=== PATIENT | male | born 2005 | race African-American/Black ===

== ENCOUNTER 2023-01-23 21:41 | Emergency (ER) | payer MEDICAID ==
[~2023-01-23] VITALS: Ht 193 cm; Wt 96.6 kg
[2023-01-23 21:47] VITALS: BP_SYST 123; PULSE 81; RESP 18; TEMP 97.2; O2SAT 99
[2023-01-23] MEDS ORDERED: ACYC400T19 PO (22:32)
[2023-01-23 22:43] VITALS: BP_SYST 134; PULSE 64; RESP 17; O2SAT 98
== END 2023-01-23 22:43 | disposition home or self-care (01) ==
LOC: SED 21:41
DX: B37.0 Candidal stomatitis (principal); K13.79 Other lesions of oral mucosa; Z79.899 Other long term (current) drug therapy
CPT/HCPCS: 99282

== ENCOUNTER 2023-06-10 17:17 | Emergency (ER) | payer MEDICAID ==
[~2023-06-10] VITALS: Ht 193 cm; Wt 97.5 kg
[~2023-06-10 17:17] MED LIST: ACYC400T19 PO
[2023-06-10 17:51] VITALS: BP_SYST 121; PULSE 58; RESP 18; TEMP 98.6; O2SAT 99
[2023-06-10] MEDS ORDERED: FAMOTIDINE 20 MG TABLET PO ONE (18:00)
[2023-06-10] MEDS ORDERED: MAG HYDROX/AL HYDROX/SIMETH 30 ML, LIDOCAINE VISCOUS 2% 15ML (PO) 15 ML, DICYCLOMINE HC... PO ONE ×3 (18:00)
[2023-06-10 19:10] LABS: BILIRUBIN,URINE NEGATIVE (NEGATIVE); BLOOD, URINE NEGATIVE (NEGATIVE); CLARITY/URINE CLEAR (CLEAR); COLOR,URINE YELLOW (YELLOW); GLUCOSE,URINE NEGATIVE (NEGATIVE); KETONES,URINE NEGATIVE (NEGATIVE); LEUKOCYTE ESTERASE ,URINE NEGATIVE (NEGATIVE); NITRITE, URINE NEGATIVE (NEGATIVE); PH,URINE 6.5 (5.0-8.0); PROTEIN URINE NEGATIVE (NEGATIVE); UROBILINOGEN,URINE 0.2 (0.2-1.0)
[2023-06-10 19:14] LABS: BASOPHILS # (AUTO) 0.1 K/uL (0.0-0.2); BASOPHILS % (AUTO) 0.9 % (0.0-2.0); EOSINOPHILS # (AUTO) 0.1 K/uL (0.0-0.4); EOSINOPHILS % (AUTO) 1.6 % (0.0-4.0); HEMATOCRIT 38.1 % (36-54); HEMOGLOBIN 12.9 g/dL (14.0-18.0); LYMPHOCYTES # (AUTO) 1.5 K/uL (1.0-5.5); LYMPHOCYTES % (AUTO) 25.2 % (20.5-51.5); MEAN CORPUSCULAR HEMOGLOBIN 28 pg (27-31); MEAN CORPUSCULAR HGB CONC 34 % (32-36); MEAN CORPUSCULAR VOLUME 81 fL (79.0-98.0); MONOCYTES # (AUTO) 0.5 K/uL (0.0-1.0); MONOCYTES % (AUTO) 8.8 % (1.7-9.3); NEUTROPHILS # (AUTO) 3.7 K/uL (1.8-7.7); NEUTROPHILS % (AUTO) 63.5 % (40.0-70.0); PLATELET COUNT (AUTO) 302 K/uL (130-430); RED BLOOD CELL COUNT(AUTO) 4.68 MIL/uL (4.2-6.2); RED CELL DISTRIBUTION WIDTH 12.7 % (9.0-15.0); WHITE BLOOD COUNT (AUTO) 5.8 K/uL (4.5-11.0)
[2023-06-10] MEDS ORDERED: FAMO-132 PO (19:20)
[2023-06-10] MEDS ORDERED: OMEP20TA20 PO (19:20)
[2023-06-10] MEDS ORDERED: ANT30 PO (19:20)
[2023-06-10] MEDS ORDERED: POLY17PO17 PO (19:20)
[2023-06-10] MEDS ORDERED: DOCU-144 PO (19:24)
[2023-06-10 19:25] LABS: CALCIUM 8.8 mg/dL (8.4-11.0); CREATININE 1.08 mg/dL (0.55-1.30)
== END 2023-06-10 19:52 | disposition home or self-care (01) ==
LOC: SED 17:17
DX: K21.9 Gastro-esophageal reflux disease without esophagitis (principal); K59.00 Constipation, unspecified; R10.13 Epigastric pain; R30.0 Dysuria; F12.90 Cannabis use, unspecified, uncomplicated; Z79.899 Other long term (current) drug therapy
CPT/HCPCS: 99284; 80048; 81001; 83690; 85025; 36415; 74018; 81003; J2001

== ENCOUNTER 2023-11-19 22:00 | Emergency (ER) | payer MEDICAID ==
[~2023-11-19] VITALS: Ht 193 cm; Wt 99.8 kg
[~2023-11-19 22:00] MED LIST changes: +ANT30 PO; +DOCU-144 PO; +FAMO-132 PO; +OMEP20TA20 PO; +POLY17PO17 PO
[2023-11-19 22:31] VITALS: PULSE 78; RESP 18; TEMP 99.3; O2SAT 97
[2023-11-19 22:39] VITALS: BP_SYST 156; PULSE 78; RESP 18; TEMP 99.3; O2SAT 97
[2023-11-20 00:25] LABS: BASOPHILS # (AUTO) 0.1 K/uL (0.0-0.2); BASOPHILS % (AUTO) 0.7 % (0.0-2.0); EOSINOPHILS % (AUTO) 0.1 % (0.0-4.0); HEMATOCRIT 40.1 % (36-54); HEMOGLOBIN 13.8 g/dL (14.0-18.0); LYMPHOCYTES # (AUTO) 1.1 K/uL (1.0-5.5); LYMPHOCYTES % (AUTO) 10.9 % (20.5-51.5); MEAN CORPUSCULAR HEMOGLOBIN 28 pg (27-31); MEAN CORPUSCULAR HGB CONC 34 % (32-36); MEAN CORPUSCULAR VOLUME 80 fL (79.0-98.0); MONOCYTES # (AUTO) 0.7 K/uL (0.0-1.0); MONOCYTES % (AUTO) 7.4 % (1.7-9.3); NEUTROPHILS % (AUTO) 80.9 % (40.0-70.0); PLATELET COUNT (AUTO) 306 K/uL (130-430); RED BLOOD CELL COUNT(AUTO) 5.01 MIL/uL (4.2-6.2); RED CELL DISTRIBUTION WIDTH 12.9 % (9.0-15.0)
[2023-11-20 00:40] LABS: CALCIUM 9.4 mg/dL (8.4-11.0); CREATININE 1.24 mg/dL (0.55-1.30); TOTAL BILIRUBIN 0.3 mg/dL (0.0-1.0); TOTAL PROTEIN, SERUM 7.5 g/dL (6.4-8.3)
[2023-11-20] MEDS: ACETAMINOPHEN 500 MG TABLET PO ONE (00:54)
[2023-11-20 01:02] LABS: BILIRUBIN,URINE NEGATIVE (NEGATIVE); BLOOD, URINE NEGATIVE (NEGATIVE); CLARITY/URINE CLEAR (CLEAR); COLOR,URINE YELLOW (YELLOW); GLUCOSE,URINE NEGATIVE (NEGATIVE); KETONES,URINE NEGATIVE (NEGATIVE); LEUKOCYTE ESTERASE ,URINE NEGATIVE (NEGATIVE); NITRITE, URINE NEGATIVE (NEGATIVE); PH,URINE 6.5 (5.0-8.0); PROTEIN URINE NEGATIVE (NEGATIVE); UROBILINOGEN,URINE 0.2 (0.2-1.0)
[2023-11-20] MEDS ORDERED: SULF1TAB48 PO (01:21)
== END 2023-11-20 01:30 | disposition home or self-care (01) ==
LOC: SED 22:00
DX: R10.9 Unspecified abdominal pain (principal); R30.0 Dysuria; F32.A Depression, unspecified; Z79.899 Other long term (current) drug therapy; Z79.2 Long term (current) use of antibiotics
CPT/HCPCS: 36415; 80053; 81001; 81003; 83690; 85025; 99284

== ENCOUNTER 2024-03-11 02:31 | Emergency (ER) | payer MEDICAID ==
[~2024-03-11] VITALS: Ht 193 cm; Wt 113.4 kg
[~2024-03-11 02:31] MED LIST changes: +SULF1TAB48 PO
[2024-03-11 02:45] VITALS: BP_SYST 154; PULSE 80; RESP 19; TEMP 98; O2SAT 99
[2024-03-11 04:23] LABS: BASOPHILS # (AUTO) 0.1 K/uL (0.0-0.2); BASOPHILS % (AUTO) 0.5 % (0.0-2.0); HEMATOCRIT 44.8 % (36-54); HEMOGLOBIN 14.7 g/dL (14.0-18.0); LYMPHOCYTES # (AUTO) 0.7 K/uL (1.0-5.5); MEAN CORPUSCULAR HEMOGLOBIN 27 pg (27-31); MEAN CORPUSCULAR HGB CONC 33 % (32-36); MEAN CORPUSCULAR VOLUME 81 fL (79.0-98.0); MONOCYTES # (AUTO) 0.9 K/uL (0.0-1.0); MONOCYTES % (AUTO) 6.1 % (1.7-9.3); NEUTROPHILS # (AUTO) 12.3 K/uL (1.8-7.7); NEUTROPHILS % (AUTO) 88.4 % (40.0-70.0); PLATELET COUNT (AUTO) 279 K/uL (130-430); RED BLOOD CELL COUNT(AUTO) 5.51 MIL/uL (4.2-6.2); RED CELL DISTRIBUTION WIDTH 13.2 % (9.0-15.0); WHITE BLOOD COUNT (AUTO) 13.9 K/uL (4.5-11.0)
[2024-03-11 04:48] LABS: ALBUMIN 4.3 g/dL (3.4-4.8); CALCIUM 9.4 mg/dL (8.4-11.0); CREATININE 1.3 mg/dL (0.55-1.30); TOTAL BILIRUBIN 0.5 mg/dL (0.0-1.0); TOTAL PROTEIN, SERUM 7.2 g/dL (6.4-8.3)
[2024-03-11] MEDS: FAMOTIDINE 20 MG TABLET PO ONE (04:51)
[2024-03-11] MEDS: ONDANSETRON 4 MG ODT TAB PO ONE (04:51)
[2024-03-11] MEDS: MAG-AL HYDROX/SIMETH 30 ML UDC PO ONE (04:52)
[2024-03-11] MEDS: KETOROLAC TROMETHAMINE 30 MG VIAL IM ONE (04:53)
[2024-03-11 06:06] LABS: BILIRUBIN,URINE NEGATIVE (NEGATIVE); BLOOD, URINE NEGATIVE (NEGATIVE); CLARITY/URINE CLEAR (CLEAR); COLOR,URINE YELLOW (YELLOW); GLUCOSE,URINE NEGATIVE (NEGATIVE); KETONES,URINE NEGATIVE (NEGATIVE); LEUKOCYTE ESTERASE ,URINE NEGATIVE (NEGATIVE); NITRITE, URINE NEGATIVE (NEGATIVE); PH,URINE 6.5 (5.0-8.0); PROTEIN URINE NEGATIVE (NEGATIVE); UROBILINOGEN,URINE 0.2 (0.2-1.0)
[2024-03-11 06:59] LABS: BARBITURATE, URINE NEGATIVE (NEG <=200); BENZODIAZEPINE, URINE NEGATIVE (NEG <=150); CANNABINOID, URINE NEGATIVE (NEG <=50); COCAINE, URINE NEGATIVE (NEG <=150); METHAMPHETAMINES SCREEN,URINE POSITIVE (NEG <=500); OPIATE, URINE NEGATIVE (NEG <=100); PHENCYCLIDINE SCREEN,URINE NEGATIVE (NEG <=25); URINE METHADONE NEGATIVE (NEG <=200); URINE OXYCODONE SCREEN NEGATIVE (NEG <=100)
[2024-03-11 07:00] LABS: UR TRICYCLIC ANTIDEPRESSANTS NEGATIVE (NEG <=300); URINE AMPHETAMINE POSITIVE (NEG <=500)
[2024-03-11 07:05] VITALS: BP_SYST 145; PULSE 78; RESP 19; TEMP 98; O2SAT 99
== END 2024-03-11 07:05 | disposition home or self-care (01) ==
LOC: SED 02:31
DX: N43.2 Other hydrocele (principal); F15.10 Other stimulant abuse, uncomplicated; R10.9 Unspecified abdominal pain; R03.0 Elevated blood-pressure reading, without diagnosis of hypertension; F32.A Depression, unspecified; Z79.624 Long term (current) use of inhibitors of nucleotide synthesis; Z79.899 Other long term (current) drug therapy
CPT/HCPCS: 99285; 74176; 80307; 80053; 81001; 83690; 85025; 36415; 76870; 96372; 81003; Q0162; J1885